=== PATIENT | female | born 2000 ===

== ENCOUNTER 2023-12-31 12:15 | Outpatient (CLI) | payer BC, SELFPAY ==
[2024-01-02 02:38] LABS: DHEA-Sulfate 194 mcg/dL (44-286); FSH 9.3 mIU/mL
[2024-01-04 14:33] LABS: Testosterone Total 62 ng/dL (2-45)
[2024-01-06 20:53] LABS: Anti Mullerian Hormone,Female 7.05 ng/mL (1.02-14.63)
[2024-01-09 08:13] LABS: Estradiol, Ultrasensitive 53 pg/mL
== END 2023-12-31 12:16 | disposition home or self-care (01) ==
LOC: ANHLAB 12:17
PROVIDERS: Visit Provider Student in an Organized Health Care Education/Training Program
DX: N91.2 Amenorrhea, unspecified (principal)
CPT/HCPCS: 36415; 82627; 82670; 83001; 84403; 84443